=== PATIENT | female | born 1950 | race Caucasian/White ===

== ENCOUNTER 2024-06-20 08:19 | Outpatient (CLI) | payer MEDICAID, SELFPAY | END 2024-06-20 08:20 | disposition home or self-care (01) | LOC: WOUND 08:24 | PROVIDERS: Visit Provider Nurse Practitioner Family | DX: I87.2 Venous insufficiency (chronic) (peripheral) (principal); L97.822 Non-pressure chronic ulcer of other part of left lower leg with fat layer exposed; I25.10 Atherosclerotic heart disease of native coronary artery without angina pectoris | CPT/HCPCS: 11042; G0463 ==

== ENCOUNTER 2024-06-27 14:05 | Outpatient (CLI) | payer MEDICAID, SELFPAY | END 2024-06-27 14:06 | disposition home or self-care (01) | PROVIDERS: Visit Provider Nurse Practitioner Family | DX: I87.2 Venous insufficiency (chronic) (peripheral) (principal); L97.822 Non-pressure chronic ulcer of other part of left lower leg with fat layer exposed; I25.10 Atherosclerotic heart disease of native coronary artery without angina pectoris | CPT/HCPCS: 11042 ==

== ENCOUNTER 2024-07-04 09:21 | Outpatient (CLI) | payer MEDICAID, SELFPAY | END 2024-07-04 09:22 | disposition home or self-care (01) | LOC: WOUND 09:21 | PROVIDERS: Visit Provider Nurse Practitioner Family | DX: I87.312 Chronic venous hypertension (idiopathic) with ulcer of left lower extremity (principal); I87.2 Venous insufficiency (chronic) (peripheral); L97.822 Non-pressure chronic ulcer of other part of left lower leg with fat layer exposed | CPT/HCPCS: 11042 ==

== ENCOUNTER 2024-07-11 14:06 | Outpatient (CLI) | payer MEDICAID, SELFPAY | END 2024-07-11 14:07 | disposition home or self-care (01) | LOC: WOUND 14:06 | PROVIDERS: Visit Provider Nurse Practitioner Family | DX: I87.312 Chronic venous hypertension (idiopathic) with ulcer of left lower extremity (principal); I87.2 Venous insufficiency (chronic) (peripheral); L97.822 Non-pressure chronic ulcer of other part of left lower leg with fat layer exposed | CPT/HCPCS: 11042 ==

== ENCOUNTER 2024-07-18 14:51 | Outpatient (CLI) | payer MEDICAID, SELFPAY | END 2024-07-18 14:52 | disposition home or self-care (01) | LOC: WOUND 14:51 | PROVIDERS: Visit Provider Nurse Practitioner Family | DX: I87.312 Chronic venous hypertension (idiopathic) with ulcer of left lower extremity (principal); I87.2 Venous insufficiency (chronic) (peripheral); L97.822 Non-pressure chronic ulcer of other part of left lower leg with fat layer exposed | CPT/HCPCS: 11042 ==

== ENCOUNTER 2024-07-25 14:51 | Outpatient (CLI) | payer MEDICAID, SELFPAY | END 2024-07-25 14:52 | disposition home or self-care (01) | LOC: WOUND 14:51 | PROVIDERS: Visit Provider Nurse Practitioner Family | DX: I87.312 Chronic venous hypertension (idiopathic) with ulcer of left lower extremity (principal); I87.2 Venous insufficiency (chronic) (peripheral); L97.822 Non-pressure chronic ulcer of other part of left lower leg with fat layer exposed | CPT/HCPCS: 15271; Q4158 ==

== ENCOUNTER 2024-08-01 14:51 | Outpatient (CLI) | payer MEDICAID, SELFPAY | END 2024-08-01 14:52 | disposition home or self-care (01) | LOC: WOUND 14:51 | PROVIDERS: Visit Provider Nurse Practitioner Family | DX: I87.312 Chronic venous hypertension (idiopathic) with ulcer of left lower extremity (principal); I87.2 Venous insufficiency (chronic) (peripheral); L97.822 Non-pressure chronic ulcer of other part of left lower leg with fat layer exposed | CPT/HCPCS: G0463 ==

== ENCOUNTER 2024-08-08 14:44 | Outpatient (CLI) | payer MEDICAID, SELFPAY | END 2024-08-08 14:45 | disposition home or self-care (01) | LOC: WOUND 14:44 | PROVIDERS: Visit Provider Nurse Practitioner Family | DX: I87.312 Chronic venous hypertension (idiopathic) with ulcer of left lower extremity (principal); I87.2 Venous insufficiency (chronic) (peripheral); L97.821 Non-pressure chronic ulcer of other part of left lower leg limited to breakdown of skin | CPT/HCPCS: 97597 ==

== ENCOUNTER 2024-08-22 14:54 | Outpatient (CLI) | payer MEDICARE, SELFPAY | END 2024-08-22 14:55 | disposition home or self-care (01) | LOC: WOUND 15:00 | PROVIDERS: Visit Provider Nurse Practitioner Family | DX: I87.2 Venous insufficiency (chronic) (peripheral) (principal); L97.828 Non-pressure chronic ulcer of other part of left lower leg with other specified severity | CPT/HCPCS: G0463 ==

== ENCOUNTER 2024-09-05 14:53 | Outpatient (CLI) | payer MEDICARE, SELFPAY | END 2024-09-05 14:54 | disposition home or self-care (01) | PROVIDERS: Visit Provider Nurse Practitioner Family | DX: I87.2 Venous insufficiency (chronic) (peripheral) (principal); L97.828 Non-pressure chronic ulcer of other part of left lower leg with other specified severity | CPT/HCPCS: G0463 ==